=== PATIENT | female | born 1965 | race Caucasian/White ===

== ENCOUNTER 2017-05-20 23:30 | Emergency (ER) | payer OTHER ==
[~2017-05-20] VITALS: Ht 162.6 cm; Wt 106.6 kg
[~2017-05-20 23:30] MED LIST: ADDERALL 10 MG10 MG PO; BIOTIN1 MG PO; CALCIUM + VITA1 EACH PO; CLONAZEPAM2 MG PO; CYCLOBENZAPRINE10 MG PO; CYMBALTA60 MG PO; EFFEXOR XR150 MG PO; FERROUS SULFAT325 MG PO; GABAPENTIN100 MG; MAGNESIUM OXID400 MG PO; MULTI VITAMIN1 EACH PO; OMEPRAZOLE20 MG PO; ONDANSETRON ODT4 MG SL; REQUIP0.25 MG PO; TRAMADOL HCL50 MG PO; VITAMIN D5000 UNIT PO
--- OUTSIDE RECORDS SUMMARY | 2017-05-20 23:36 | XMS ---
Demographics + + + | Address | [address] | | | [place] [address] | + + + | Preferred Language | Unknown | + + + | Marital Status | Unknown | + + + | Mormonism Affiliation | Unknown | + + + | Race | Unknown | + + + | Ethnic Group | Unknown | + + + Author + + + | Author | [facility] | + + + | Organization | [facility] | + + + | Address | [address] | | | [place] [address] | + + + | Phone | | + + + Care Team Providers + + + + | Care Counter Waiter Name | Role | Phone | + + + + Unavailable | Unavailable | + + + + PROBLEMS + + + + + + + + | Type | Condition | ICD9-CM | [id number] | Onset | Condition | SNOMED | | | | Code | Code | Dates | Status | Code | + + + + + + + + | Problem | Acute | H65.119 | | | Active | [id number] | | | allergic | | | | | | | | serous | | | | | | | | otitis | | | | | | | | media | | | | | | + + + + + + + + | Problem | Otitis | | H66.90 | | Active | [id number] | | | media | | | | | | + + + + + + + + | Assessment | Otitis | H66.92 | | 09 Apr, | Active | [id number] | | | media, | | | 2016 | | | | | left | | | | | | + + + + + + + + | Problem | Headache | 784.0 | | | Active | [id number] | + + + + + + + + | Problem | JOINT | 719.41 | | | Active | [id number] | | | PAIN-SHLDE | | | | | | | | R | | | | | | + + + + + + + + ALLERGIES + + + + +--------+ | Substance | Reaction | Event Type | Date | Status | + + + + +--------+ | Wellbutrin | dizzy like | Drug Allergy | Nov, | Active | | | seizure | | | | + + + + +--------+ | Aspirin | anaphylaxis | Drug Allergy | Nov, | Active | + + + + +--------+ SOCIAL HISTORY No smoking Hx information available PLAN OF CARE VITAL SIGNS + + + + | Height | 64 in | 2016-11-19 | + + + + | Weight | 243.7 lbs | 2016-11-19 | + + + + | BMI | 41.83 kg/m2 | 2016-11-19 | + + + + | Temperature | 98.1 degrees Fahrenheit | 2016-11-19 | + + + + | Heart Rate | 76 /min | 2016-11-19 | + + + + | Blood pressure systolic | 134 mm Hg | 2016-11-19 | + + + + | Blood pressure diastolic | 89 mm Hg | 2016-11-19 | + + + + MEDICATIONS + + + + + + + +--------+ | Medicati | Instruct | Dosage | Frequenc | Start | End Date | Duration | Status | | on | ions | | y | Date | | | | + + + + + + + +--------+ | Augmenti | p.o. | one | 12h | Nov, | 16 Nov, | 7 days | Active | | n 875 mg | twice a | tablet | | 2016 | 2016 | | | | | day | | | | | | | + + + + + + + +--------+ | Fluconaz | | 1 tablet | | 09 Nov, | 19 Apr, | 10 | Active | | ole 150 | | | | 2016 | 2016 | day(s) | | | MG | | | | | | | | + + + + + + + +--------+ RESULTS No Results PROCEDURES + + + + + | Procedure | Date Ordered | Related Diagnosis | Body Site | + + + + + | Est Level III | November 19, 2016 | | | | Intermediate | | | | + + + + + | INJ KETOROLAC | November 19, 2016 | | | | TROMETHAMINE 15 MG | | | | + + + + + | INJECTION | November 19, 2016 | | | | INTRAMUSCULAR OR | | | | | SUBCUTANEOUS | | | | + + + + + IMMUNIZATIONS + + + + + | Vaccine | Route | Administration Date | Status | + + + + + | Ketorolac 60mg/2ml | IM Intramuscular | November 19, 2016 | Administered | + + + + +"
[2017-05-21] MEDS ORDERED: ZOFRAN ODT4 MG PO (01:54)
[2017-05-21] MEDS ORDERED: TRAMADOL HCL50 MG PO (01:54)
== END 2017-05-21 02:08 | disposition home or self-care (01) ==
LOC: ED 23:30
DX: K80.20 Calculus of gallbladder without cholecystitis without obstruction (principal); Z87.891 Personal history of nicotine dependence; Z88.6 Allergy status to analgesic agent; Z79.899 Other long term (current) drug therapy
CPT/HCPCS: 74177; 80053; 81001; 83690; 84703; 85025; 87088; 96361; 96374; 96375; 99284; J1170; J2405; J7030; Q9967

== ENCOUNTER 2017-06-21 02:23 | Emergency (ER) | payer OTHER ==
[~2017-06-21] VITALS: Ht 162.6 cm; Wt 106.1 kg
[~2017-06-21 02:23] MED LIST changes: +ZOFRAN ODT4 MG PO
== END 2017-06-21 03:45 | disposition home or self-care (01) ==
LOC: ED 02:23
DX: K21.9 Gastro-esophageal reflux disease without esophagitis (principal); F10.10 Alcohol abuse, uncomplicated; F15.90 Other stimulant use, unspecified, uncomplicated; F17.200 Nicotine dependence, unspecified, uncomplicated; Z88.8 Allergy status to other drugs, medicaments and biological substances; Z79.899 Other long term (current) drug therapy
CPT/HCPCS: 96374; 99282

== ENCOUNTER 2017-12-14 19:19 | Emergency (ER) | payer OTHER ==
[~2017-12-14] VITALS: Ht 162.6 cm; Wt 106.1 kg
[2017-12-14] MEDS ORDERED: NAPROXEN500 MG PO (20:30)
== END 2017-12-14 20:43 | disposition home or self-care (01) ==
LOC: ED 19:19
DX: S16.1XXA Strain of muscle, fascia and tendon at neck level, initial encounter (principal); S29.9XXA Unspecified injury of thorax, initial encounter; F17.200 Nicotine dependence, unspecified, uncomplicated; Z88.6 Allergy status to analgesic agent; Z88.8 Allergy status to other drugs, medicaments and biological substances; Z79.899 Other long term (current) drug therapy; V89.2XXA Person injured in unspecified motor-vehicle accident, traffic, initial encounter
CPT/HCPCS: 71046; 72040; 72170; 99283

== ENCOUNTER 2018-02-13 14:58 | Emergency (ER) | payer OTHER ==
[~2018-02-13] VITALS: Ht 162.6 cm; Wt 104.3 kg
[~2018-02-13 14:58] MED LIST changes: +NAPROXEN500 MG PO
[2018-02-13] MEDS ORDERED: ROBAXIN-750750 MG PO (16:16)
== END 2018-02-13 16:24 | disposition home or self-care (01) ==
LOC: ED 14:58
DX: M54.6 Pain in thoracic spine (principal); F17.200 Nicotine dependence, unspecified, uncomplicated; Z88.8 Allergy status to other drugs, medicaments and biological substances
CPT/HCPCS: 72070; 96372; 99283; J1885

== ENCOUNTER 2018-04-17 12:46 | Emergency (ER) | payer OTHER ==
[~2018-04-17] VITALS: Ht 162.6 cm; Wt 90.7 kg
[~2018-04-17 12:46] MED LIST changes: +ROBAXIN-750750 MG PO
[2018-04-17] MEDS ORDERED: IBU600 MG PO (13:20)
[2018-04-17] MEDS ORDERED: MAPAP500 MG PO (13:20)
[2018-04-17] MEDS ORDERED: ROBAXIN-750750 MG PO (13:20)
== END 2018-04-17 13:40 | disposition home or self-care (01) ==
LOC: ED 12:46
DX: M54.41 Lumbago with sciatica, right side (principal); F17.200 Nicotine dependence, unspecified, uncomplicated; Z88.8 Allergy status to other drugs, medicaments and biological substances; Z79.899 Other long term (current) drug therapy
CPT/HCPCS: 99283

== ENCOUNTER 2018-09-02 04:46 | Inpatient (IN) | payer OTHER ==
[~2018-09-02] VITALS: Ht 162.6 cm; Wt 105.1 kg
[~2018-09-02 04:46] MED LIST changes: +IBU600 MG PO; +MAPAP500 MG PO
--- NOTE | 2018-09-02 12:20 | EKG ---
[facility] [address] [facility] [place] [address] Signed Normal sinus rhythm Normal ECG No previous ECGs available Confirmed by SAMMIE SENA DO ([id number]) on 09/02/2018 12:20:44 PM Electronically Signed By: SAMMIE SENA DO 09/02/18 1220 PATIENT NAME: ALEXIS HERNANDEZ Electrocardiogram DATE OF : 67 PHYSICIAN: SAMMIE SENA DO REPORT #: [id number] REPORT IS CONFIDENTIAL AND NOT TO BE RELEASED WITHOUT AUTHORIZATION
--- NOTE | 2018-09-03 21:11 | OR ---
[facility] [address] [place], [place] [address] Signed DATE OF OPERATION: 09/03/2018 SURGEON: Bishnu Simons MD PREOPERATIVE DIAGNOSES: 1. Acute cholecystitis with gallstones and hydrops of gallbladder. 2. Morbid obesity. 3. Substance abuse history. POSTOPERATIVE DIAGNOSES: 1. Acute cholecystitis with gallstones and hydrops of gallbladder. 2. Morbid obesity. 3. Substance abuse history. PROCEDURES: 1. Laparoscopic cholecystectomy with intraoperative cholangiogram, prolonged, complicated, difficult. 2. Surgeon-directed fluoroscopy. ANESTHESIA: General endotracheal, [place], [employer] COMPLIANCE MANAGER and local 10 mL of 0.25% Marcaine with epinephrine. INDICATION: This morbidly obese 53-year-old white woman admitted through the emergency room yesterday with severe upper abdominal pain. She is quite morbidly obese. She does have persistent drug abuse including methamphetamine, only two days prior to current admission. A CT scan was performed on the basis of her generalized abdominal pain, showing a hydropic gallbladder with pericholecystic fluid and inflammation. She has been fluid resuscitated given intravenous antibiotics, parenteral pain medication and so forth and now is to undergo cholecystectomy preferred by a laparoscopic approach. The risks of bleeding, infection, bile duct injury, need for open procedure and other unforeseen complications are all reviewed with her. She understood and wished to proceed. FINDINGS: Indeed, the gallbladder was markedly hydropic, thickened, and inflamed. This did require decompression. Clear bile was noted indicative of gallbladder outlet obstruction. Intraoperative cholangiogram was performed, which was normal. The liver had mild fatty infiltration, but no advanced cirrhotic changes by any means. The Electronically Signed By: BISHNU SIMONS MD 09/03/18 2111 PATIENT NAME: ALEXIS HERNANDEZ OPERATIVE REPORT DATE OF : 67 REPORT #: [id number] PHYSICIAN: BISHNU SIMONS MD PCP: MERCEDES HOLLINGSWORTH REPORT IS CONFIDENTIAL AND NOT TO BE RELEASED WITHOUT AUTHORIZATION [facility] [address] [place], [place] [address] Signed gallbladder was excised laparoscopically, though it was a prolonged, complicated, and difficult operation on the basis of the edema, her body obesity, the distended nature of the gallbladder, and so on. DESCRIPTION OF PROCEDURE: The patient was brought to the operating room, given a general endotracheal anesthetic. Preoperative antibiotic Ancef had been given. Sequential compression device stockings used and heparin subcutaneously administered. The obese abdomen was prepared with chlorhexidine solution and draped sterilely. Multiple tattoos were noted over the abdominal cavity. Avoidance of the tattoos was undertaken as best could be. An infraumbilical incision was made and using an open William cannula technique, the abdomen was entered and pneumoperitoneum achieved to a level of 14 mmHg with carbon dioxide gas. Intra-abdominal inspection showed no sign of ascites or carcinomatosis. The gallbladder was obscured from view. Three additional trocars were placed in usual configuration in the subxiphoid, right midclavicular, and right anterior axillary line. Dense adhesions of omentum to the surface of the gallbladder were noted. These were taken down with blunt and electrocautery dissection. The gallbladder once revealed was markedly dilated and hydropic and markedly inflamed and thickened. It could not be grasped. Using a decompressive trocar, the apex was punctured and drainage of "white bile" was undertaken. The puncture site was grasped and gallbladder elevated cephalad. The infundibulum was grasped and retracted laterally and using blunt and electrocautery dissection, the triangle of Calot was dissected free. Due to the edema and so forth, the planes were able to be developed safely. There appeared to be a cyst in the medial aspect of the gallbladder in the medial segment of the left lobe of the liver. It did not represent hemangioma. With meticulous care, the cystic duct was ultimately dissected free. It was isolated and a clip applied across the gallbladder cystic duct junction. Transverse choledochotomy was made in the cystic duct, but it was thick and fibrotic. On that basis, another choledochotomy was made down the ducts of short distance revealing a lumen that was patent showing clear bile. Using the Tanner type cholangiocatheter, intraoperative cholangiography was undertaken showing free flow of contrast in biliary tree with prompt emptying into the duodenum. There was no sign of filling defect, biliary anomaly, or other problem. The cystic duct was triply clipped and divided. The gallbladder was dissected free in a retrograde fashion. In the medial aspect of the gallbladder was a cyst, not a hemangioma as had been postulated by CT scan. Entry into the gallbladder did occur as the posterior wall was gangrenous and necrotic. A single large stone came out of it. It was left in place to be extracted with the gallbladder itself. Further dissection was undertaken, ultimately excising the gallbladder from the liver bed. Endobag was used to place the gallbladder and the stray stone into it, and extracted through the infraumbilical port site. The gallbladder was opened on the back table by the circulating nurse and I examined it, and she had marked inflammatory Electronically Signed By: BISHNU SIMONS MD 09/03/182110 PATIENT NAME: ALEXIS HERNANDEZ OPERATIVE REPORT DATE OF : 67 REPORT #: [id number] PHYSICIAN: BISHNU SIMONS MD PCP: MERCEDES HOLLINGSWORTH REPORT IS CONFIDENTIAL AND NOT TO BE RELEASED WITHOUT AUTHORIZATION [facility] [address] [place], [place] [address] Signed changes of mucosa in least two large gallstones. Irrigation was undertaken in subhepatic space. A 7 mm flat Rito drain was placed through a right-sided trocar site. Not mentioned previously was egress of pus upon small perforation of the gallbladder. This had been suctioned free and maintained and not generally distributed anywhere. Once excess irrigation fluid was suctioned free and the Rito drain manipulated to the subhepatic space, it was secured with the skin with nylon suture. Excess irrigation fluid was suctioned free and removed and trocars removed under direct visualization showing no sign of bleeding. The infraumbilical fascial incision was reapproximated with interrupted 0 Vicryl suture. All wounds were copiously irrigated with saline solution. A 10 mL of 0.25% Marcaine with epinephrine was injected locally. The skin was then closed with interrupted 3-0 Vicryl. Steri-Strips were applied. The patient was ultimately extubated and transferred to recovery in good condition. The operation was prolonged, complicated, and difficult lasting three times longer than normal. This is in large part related to hydropic nature of the gallbladder, its advanced inflammation, and her morbid obesity. MD TALYA Lechuga/ZACKL /[id number] cc: AJ Doshi [facility] Tom Guadarrama MD Copies: ALEXANDRA GUADARRAMA MD ~ Electronically Signed By: BISHNU SIMONS MD 09/03/182110 PATIENT NAME: ALEXIS HERNANDEZ OPERATIVE REPORT DATE OF : 67 REPORT #: [id number] PHYSICIAN: BISHNU SIMONS MD PCP: MERCEDES HOLLINGSWORTH REPORT IS CONFIDENTIAL AND NOT TO BE RELEASED WITHOUT AUTHORIZATION
--- NOTE | 2018-09-04 12:09 | HP ---
[facility] [address] [place], [place] [address] Signed ADMISSION DATE: 09/02/2018 REASON FOR ADMISSION: Hydropic gallbladder with gallstones, abdominal pain. HISTORY OF PRESENT ILLNESS: This obese 39.8 kg/m2 woman is accompanied by her . She presented to the emergency room at approximately 5 in the morning and evaluated initially by Dr. Guadarrama, with generalized abdominal pain and a diagnosis underlying of "fibromyalgia." Additionally, she is known to have significant drug use including methamphetamine use in the past few days. The patient complained of severe pain of her lower back, also on the left around the neck and poorly localized pain generally. She was transferred to the hospital by EMS services and evaluated by Dr. Guadarrama, on whose evaluation was transferred ultimately to . The tox screen was significant for amphetamine and methamphetamine use, no other illicit substances noted. The patient and her , who accompanied her, do admit to episodic drug abuse problems over many years, sometimes "getting clean" together, sometimes doing drugs together. In the course of her evaluation for abdominal pain, she underwent a CT of the abdominal cavity and pelvis. She was noted to have a hydropic, distended gallbladder with gallstones and mild pericholecystic fat strand suggestive of cholecystitis. There is no evidence of nephrolithiasis. A possible hemangioma or cyst was noted of the right hepatic lobe, diverticular changes of the colon were noted, and a simple left renal cyst also noted previously and present at this time. The patient notes that her pain is not unlike kidney stones that she has had in the past. A urinalysis was essentially normal. Chem profile showed normal chemistries including liver enzymes and lipase was 9, beta-hCG was negative. The patient is admitted for further evaluation and care for probable hydropic gallbladder with gallstones. PAST MEDICAL HISTORY: As described including drug abuse. The patient has seven children, youngest 21 years of age. MEDICATIONS: At the time of admission include methocarbamol 750 mg tablet 1-2 q.8 hours as needed for muscle spasm and ibuprofen 600 mg daily t.i.d. as needed for pain. Electronically Signed By: BISHNU SIMONS MD 09/04/18 1209 PATIENT NAME: ALEXIS HERNANDEZ HISTORY AND PHYSICAL DATE OF : 67 REPORT #: [id number] PHYSICIAN: BISHNU SIMONS MD PCP: MERCEDES HOLLINGSWORTH REPORT IS CONFIDENTIAL AND NOT TO BE RELEASED WITHOUT AUTHORIZATION [facility] [address] [place] [address] Signed ALLERGIES: She is considered to have aspirin allergy and bupropion allergy from [facility]. SOCIAL HISTORY: She is and not working. REVIEW OF SYSTEMS: Denies any shortness of breath or chest pain per se. Does have abdominal pain, some of it on the left, some of it on the right side. She denies any hematuria or dysuria. Denies any hematemesis or blood per rectum. PHYSICAL EXAMINATION: GENERAL: Somewhat dark-skinned woman, lying on her left side with her closely attached to her in the bed. After becoming independent in her bed, examination shows her to be with a fair amount of discomfort and somewhat fidgety and definitely not lying still. HEENT: Mucous membranes are slightly dry. Trachea is midline. CHEST: Clear. HEART: Regular without murmur. ABDOMEN: Markedly obese. There are tattoos in the area. She does not have left lower abdominal pain. Does have an obese abdominal wall. There is tenderness in the right subcostal area, but no mass. EXTREMITIES: Show no clubbing, cyanosis, or edema. ASSESSMENT AND PLAN: I have reviewed her CT scan in detail. The gallbladder does appear dilated stones. Most likely, she does have acute calculous cholecystitis. Antibiotics have been initiated and will be continued. Still needs additional fluids and on that basis fluid boli will be initiated. She wants to have something by mouth and we will allow liquids, but nothing to eat after midnight. We will anticipate laparoscopic cholecystectomy in the morning if all is reasonably well regarding resuscitation. The risk of bleeding, infection, bile duct injury, need for open procedure, and other unforeseen complications were all reviewed in detail with the patient and her . A gallbladder booklet will be provided as well. Bishnu Simons MD Electronically Signed By: BISHNU SIMONS MD 09/04/18 1209 PATIENT NAME: ALEXIS HERNANDEZ HISTORY AND PHYSICAL DATE OF : 67 REPORT #: [id number] PHYSICIAN: BISHNU SIMONS MD PCP: MERCEDES HOLLINGSWORTH REPORT IS CONFIDENTIAL AND NOT TO BE RELEASED WITHOUT AUTHORIZATION [facility] [address] [place] [id number] Signed /[facility] /[id number] cc: Alexandra Guadarrama MD Copies: ALEXANDRA GUADARRAMA MD ~ Electronically Signed By: BISHNU SIMONS MD 09/04/18 1209 PATIENT NAME: ALEXIS HERNANDEZ HISTORY AND PHYSICAL DATE OF : 67 REPORT #: [id number] PHYSICIAN: BISHNU SIMONS MD PCP: MERCEDES HOLLINGSWORTH REPORT IS CONFIDENTIAL AND NOT TO BE RELEASED WITHOUT AUTHORIZATION
[2018-09-04] MEDS ORDERED: MAPAP500 MG PO (13:24)
[2018-09-04] MEDS ORDERED: MAPAP325 MG PO (13:25)
[2018-09-04] MEDS ORDERED: OXYCODON-ACETA1 EAC2 PO (13:25)
--- NOTE | 2018-09-04 18:15 | DS ---
[facility] [address] [place], [place] [address] Signed ADMISSION DATE: 09/02/2018 DISCHARGE DATE: 09/04/2018 REASON FOR ADMISSION: Hydropic gallbladder with gallstones, acute cholecystitis, and morbid obesity. HISTORY: This morbidly obese 39.8 kg/m2 woman presents to the emergency room and evaluated by Dr. Landon with findings of upper abdominal pain. A CT scan was obtained showing hydropic gallbladder with gallstones and pericholecystic inflammation. She was admitted for further evaluation and care. PERTINENT PHYSICAL EXAMINATION: GENERAL: Showed a somewhat dark skin woman who had dry mucous membranes. HEART: Regular without murmur. ABDOMEN: Markedly obese. There are multiple tattoos on the abdominal wall. There is tenderness in the right upper abdominal area. Other details can be found in history and physical. HOSPITAL COURSE: She was fluid resuscitated given intravenous antibiotics, parenteral pain medications and so on. On September 03, 2018, she underwent laparoscopic cholecystectomy, which was prolonged, complicated, and difficult on the basis of her obesity and very markedly dilated hydropic gallbladder. Cholangiogram was normal. She had clear bile noted, which was drained prior to cholecystectomy indicative of complete gallbladder obstruction. A drain was placed at operation. Postoperatively, she recovered quite markedly. By day of discharge, she is ambulating well, tolerating regular diet, has much improvement of her generalized abdominal pain. It is noted that she has an underlying drug abuse problem including methamphetamine use and others on an episodic basis. She was advised to avoid those illicit drugs. DISCHARGE MEDICATIONS: 1. Tylenol 650 mg p.o. q.6 hours p.r.n. pain #90, refill one. 2. Oxycodone/acetaminophen 7.5/325 p.o. q.6 hours p.r.n. pain, dispense #5. FOLLOWUP PLAN: She will return to see me in approximately 4 weeks. She is to walk daily. Keep Electronically Signed By: BISHNU SIMONS MD 09/04/18 1815 PATIENT NAME: ALEXIS HERNANDEZ DISCHARGE SUMMARY DATE OF : 67 REPORT #: [id number] PHYSICIAN: BISHNU SIMONS MD PCP: MERCEDES HOLLINGSWORTH REPORT IS CONFIDENTIAL AND NOT TO BE RELEASED WITHOUT AUTHORIZATION [facility] [address] [place] [address] Signed Steri-Strips on. She is permitted to shower. She should lift no more than 20 pounds for the next 2 weeks. DISCHARGE DIAGNOSES: 1. Acute cholecystitis (hydropic gallbladder). 2. Status post laparoscopic cholecystectomy with cholangiogram prolonged, complicated, difficult. MD TALYA Lechuga/ZACKL /[id number] Copies: ~ Electronically Signed By: BISHNU SIMONS MD 09/04/18 1815 PATIENT NAME: ALEXIS HERNANDEZ DISCHARGE SUMMARY DATE OF : 67 REPORT #: [id number] PHYSICIAN: BISHNU SIMONS MD PCP: MERCEDES HOLLINGSWORTH REPORT IS CONFIDENTIAL AND NOT TO BE RELEASED WITHOUT AUTHORIZATION
== END 2018-09-04 15:13 | disposition home or self-care (01) | DRG 418 ==
LOC: ED 04:46 → MS 04:47
PROVIDERS: ADMIT Surgery
PROC: BF13YZZ Fluoroscopy of Gallbladder and Bile Ducts using Other Contrast (ICD-10-PCS; 2018-09-03)
PROC: 0FT44ZZ Resection of Gallbladder, Percutaneous Endoscopic Approach (ICD-10-PCS; principal; 2018-09-03 06:45)
DX: K80.00 Calculus of gallbladder with acute cholecystitis without obstruction (principal); K82.1 Hydrops of gallbladder; E66.01 Morbid (severe) obesity due to excess calories; Z68.39 Body mass index [BMI] 39.0-39.9, adult; F19.10 Other psychoactive substance abuse, uncomplicated; M79.7 Fibromyalgia
CPT/HCPCS: 00790; 51701; 74176; 74300; 76705; 80053; 81001; 83690; 84703; 85025; 88304; 93005; 93010; 94762; 96365; 96375; 96376; 99285-25; C9113; G0008; G0378; J0131; J0690; J1100; J1644; J1885; J2250; J2270; J2405; J2543; J2704; J2765; J3010; J7060; J7120; Q9967

== ENCOUNTER 2018-09-12 12:21 | Emergency (ER) | payer OTHER ==
[~2018-09-12] VITALS: Ht 162.6 cm; Wt 105.1 kg
[~2018-09-12 12:21] MED LIST changes: +MAPAP325 MG PO; +OXYCODON-ACETA1 EAC2 PO
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
[2018-09-12] MEDS ORDERED: ONDANSETRON ODT8 MG PO (16:37)
[2018-09-12] MEDS ORDERED: NORCO 5-325 TA1 EACH PO (16:37)
== END 2018-09-12 16:49 | disposition home or self-care (01) ==
LOC: ED 12:21
DX: N84.0 Polyp of corpus uteri (principal); D64.9 Anemia, unspecified; Z87.891 Personal history of nicotine dependence; Z90.49 Acquired absence of other specified parts of digestive tract; Z88.6 Allergy status to analgesic agent; Z88.8 Allergy status to other drugs, medicaments and biological substances
CPT/HCPCS: 74177; 80053; 81001; 83690; 85025; 87088; 96361; 96374; 96375; 99284-25; J1170; J2405; J7030; Q9967

== ENCOUNTER 2024-05-16 08:58 | Day surgery (SDC) | payer OTHER ==
--- NOTE | 2024-05-14 17:04 | NUR ---
PHONE CALL TO PT AT THE FOLLOWING NUMBER [phone]. IS OUT OF SERVICE. WILL CALL DR OFFICE TO SEE IF THEY HAVE DIFFERENT NUMBER. OFFICE IS CURRENTLY CLOSED.
--- NOTE | 2024-05-14 17:48 | EKG ---
[facility] [address] [facility] [place] [address] Signed Normal sinus rhythm with sinus arrhythmia Normal ECG When compared with ECG of 02-SEP-2018 04:53, No significant change was found Confirmed by Jere Edwards MD ([id number]) on 05/14/2024 5:47:54 PM Electronically Signed By: JERE EDWARDS DO 05/14/24 1748 PATIENT NAME: MARYALEXIS KALLIE Electrocardiogram DATE OF : 67 PHYSICIAN: JERE EDWARDS DO REPORT #: [id number] REPORT IS CONFIDENTIAL AND NOT TO BE RELEASED WITHOUT AUTHORIZATION
--- NOTE | 2024-05-15 10:10 | NUR ---
CALL TO DR RODRÍGUEZ OFFICE DUE TO PHONE NUMBER IS NOT WORKING. THE OFFICE IS ALSO TRYING TO REACH THIS PATIENT. [facility] AND [facility] MAYBE ABLE TO HELP FIND PATIENT AND HAVE A CURRENT NUMBER. OFFICE WILL LET MACHINE CAGE MAKER KNOW OF THE NEW NUMBER AND ANY OTHER CHANGES.
--- NOTE | 2024-05-15 15:57 | NUR ---
TRY TO CVALL PT HUSBANDS NUMBER UNABLE TO RECEIVE CALLS AND THEN HER MOTHER IN LAWS NUMBER AND IT IS NOT HER PHONE NUMBER ANYMORE. WILL REACH OUT TO PATRICK. TALKED WITH REFERRALS.
--- NOTE | 2024-05-15 16:09 | NUR ---
PATRICK PROVIDED TWO NUMBERS [phone] IT IS NOT A GOOD NUMBER FOR HER AND [phone] IS BUSY AND UNABLE TO GET THROUGHT TO ANYONE. THE NUMBERS THAT OUR IN THE HOSPITAL SYSTEM IS [phone] IS NOT A WORKING NUMBER. [phone] IS NOT A WORKING NUMBER AND [phone] IS NOT HER MOTHER IN LAW NUMBER. CALLED DR MIRELES OFF AND TALKED WITH MARLENI AND EXPALINED WHAT I HAVE DONE TO TRY TO REACH THIS PERSON. SHE WILL TALK WITH DR RODRÍGUEZ ABOUT PT.
[~2024-05-16] VITALS: Ht 162.6 cm; Wt 91.8 kg
[~2024-05-16 08:58] MED LIST changes: +CEFAZOLIN SODIUM 2 GM/20 ML SYR IV SCH; +IBLOOD GLUCOSE TEST STRIP 1 EA TEST VI PRN; +LACTATED RINGER'S 1,000 ML IV SCH; +LIDOCAINE HCL 1% 5 ML SDV INJ ONE; +NORCO 5-325 TA1 EACH PO; +ONDANSETRON ODT8 MG PO; +PERCOCET 5-3251 EACH PO; +SEVOFLURANE 250 ML BTL INH ONE
[2024-05-16 09:21] VITALS: BP 165/87
[2024-05-16 09:32] VITALS: BP 165/85
[2024-05-16] MEDS ORDERED: TRAMADOL HCL50 MG PO ×2 (09:39→11:55)
[2024-05-16] MEDS ORDERED: propofoL 200 MG/20 ML VIAL ONE (09:41)
[2024-05-16] MEDS ORDERED: SODIUM CHLORIDE 0.9% 20 ML IV ONE (09:41)
[2024-05-16] MEDS ORDERED: LIDOCAINE HCL 2% 5 ML SDV ONE (09:41)
[2024-05-16] MEDS ORDERED: DEXAMETHASONE SOD PHOS 4 MG/ML VIAL ONE (09:41)
[2024-05-16] MEDS ORDERED: KETOROLAC TROMETHAMINE 30 MG/ML VIAL ONE (09:41)
[2024-05-16] MEDS ORDERED: ondansetron HCL 4 MG/2 ML VIAL ONE (09:41)
[2024-05-16] MEDS ORDERED: dexmedeTOMIDine HCl 200 MCG/2 ML VIAL ONE (09:41)
[2024-05-16] MEDS ORDERED: Ropivacaine HCl 0.5% 30 ML VIAL ONE (09:41)
[2024-05-16] MEDS ORDERED: MIDAZOLAM HCL 2 MG/2 ML VIAL ONE (09:47)
[2024-05-16 10:31] LABS: AMPHETAMINES, URINE POSITIVE (NEGATIVE); BARBITURATES, URINE NEGATIVE (NEGATIVE); BENZODIAZEPINE, URINE NEGATIVE (NEGATIVE); BUPRENORPHINE, URINE NEGATIVE (NEGATIVE); CANNABINOID, URINE NEGATIVE (NEGATIVE); COCAINE, URINE NEGATIVE (NEGATIVE); ECSTASY, URINE NEGATIVE (NEGATIVE); FENTANYL, URINE NEGATIVE (NEGATIVE); METHADONE, URINE NEGATIVE (NEGATIVE); OPIATES, URINE NEGATIVE (NEGATIVE); OXYCODONE, URINE NEGATIVE (NEGATIVE); PHENCYCLIDINE, URINE NEGATIVE (NEGATIVE)
[2024-05-16] MEDS ORDERED: NALOXONE HCL 0.4 MG SYR IV PRN (10:45)
[2024-05-16] MEDS ORDERED: ondansetron HCL 4 MG/2 ML VIAL IV PRN (10:45)
[2024-05-16] MEDS ORDERED: MIDAZOLAM HCL 2 MG/2 ML VIAL IV PRN (10:45)
[2024-05-16] MEDS ORDERED: fentaNYL citrate 50 MCG/ML SDV IV PRN (10:45)
[2024-05-16] MEDS ORDERED: TRAMADOL HCL 50 MG TAB PO PRN (10:45)
[2024-05-16] MEDS ORDERED: IBLOOD GLUCOSE TEST STRIP 1 EA TEST VI PRN (10:45)
[2024-05-16] MEDS ORDERED: LACTATED RINGER'S 1,000 ML IV ONE (11:03)
[2024-05-16] MEDS ORDERED: fentaNYL citrate 100 MCG/2 ML VIAL ONE (11:04)
--- NOTE | 2024-05-16 12:10 | NUR ---
05/16/24 1210 TON BLACKBURN 1153 PT ARRIVED TO PACU VIA STREACHER. PT HAS ORAL AIRWAY IN PLACE AND 6L OF OXYGEN VIA FACE MASK. PT BREATHING EQUAL AND UNLABORED. REPORT TAKEN FROM BEATRIS LERNER. ALL MONITORS ATTACHED. SPOKE TO HAIRSPRING I INSPECTOR ABOUT BLOOD PRESSURES, NO NEW ORDERS AT THIS TIME. 1158 WITH TACTILE STIMULI, PT ABLE TO OPEN MOUTH TO REMOVE AIRWAY. BRETHING EQUAL AND UNLABORED. 6L OF O2 VIA FACE MASK. 1200 HAIRSPRING I INSPECTOR WOKE PT WITH TACTILE STIMULI, PT SHOOK HEAD 'NO' WHEN ASKED ABOUT IF PT IS IN PAIN.
[2024-05-16 12:30] VITALS: BP 170/98
--- NOTE | 2024-05-16 12:40 | NUR ---
1230-PT ARRIVED TO DROWSY, DOZING ON AND OFF. PT IS EASILY AROUSED WITH LIGHT TOUCH OR VERBAL STIMULI. PT ANSWERS QUESTIONS APPROPRIATELY. VSS. PT WITH SATS 95% OR GREATER ON RA. REPORT RECEIVED FROM PRODUCE SHIPPER. VISUALIZED SURGICAL DRSG WITH PRODUCE SHIPPER. DRSG/SPLINT IS CDI. LUE ELEVATED ON PILLOWS WITH ICE PACK IN PLACE. CMS INTACT. PT ABLE TO WIGGLE FINGERS SOME BUT IS UNABLE TO LIFT ARM OF PILLOW. SLING OBTAINED FOR PLACEMENT WHEN MORE AWAKE TO KEEP ARM IMMOBILIZED AND ELEVATED. PT REPORTS SOME NUMBNESS AND TINGLING IN LUE IN HAND AND FINGERS. PT DENIES PAIN OR NAUSEA WHEN ASKED. WHEN PT IS NOT BEING ENGAGED IN CONVERSATION, PT QUICKLY FALLS BACK ASLEEP. BILAT SIDERAILS IN PLACE. CALL LIGHT WITHIN PT REACH ON R SIDE. BED IN LOW POSITION WITH WHEELS LOCKED. ALL QUESTIONS ANSWERED. IV SITE ASSESSED, PATENT, AND INFUSING LR PER ORDERS.
[2024-05-16 13:32] VITALS: BP 146/81
--- NOTE | 2024-05-16 13:40 | NUR ---
1315-VERBAL STIMULI USED TO WAKE PT. PT ANSWERS QUESTIONS APPROPRIATELY BUT HAS DIFFICULTY KEEPING EYES OPEN AND EASILY DOSES BACK TO SLEEP. PT OFFERED ICE WATER AND SNACK. PROVIDED PT WITH CHOCOLATE PUDDING, MIGUEL CRACKERS, AND ICE WATER. PT TAKING SIPS OF ICE WATER AND EATING. HOB WAS ELEVATED TO APPROX 45-60 DEGREES TO AID IN EATING AND PROMOTE WAKEFULLNESS. SPOKE WITH PT REGARDING UNCONTROLLED HTN AND RISK OF STROKE, PT HAS HX OF STROKE. PT EDUCATED ON RISKS FOR HTN AND STROKE AND ENCOURAGED TO SEE PCP AT [facility] REGARDING TX FOR HTN. PT VERBALIZED UNDERSTANDING AND ASKED FOR ASSISTANCE SETTING UP AN APPOINTMENT. WILL ATTEMPT TO CALL [facility] AND SCHEDULE APPOINTMENT FOR PT AT HER REQUEST. PT REQUESTING ANOTHER WARM BLANKET. OBTAINED AND PLACED ON PT. 1325-PTS SPOUSE ARRIVED AND WAS SHOWN TO HER ROOM. SPOUSE STAYED APPROX 2-3 MINS AND THEN LEFT. PT REPORTS HE SAID HE WOULD COME BACK LATER. 1330-INTO PTS ROOM FOR ROUTINE REASESSMENT. VS TAKEN. BP IMPROVED. IV SITE ASSESSED. SURIGCAL DRESSING VISUALIZED AND NO ACUTE CHANGES NOTED FROM PREVIOUS ASSESSMENT. PT CONT TO REPORT SOME NUMBNESS AND TINGLING FEELINGS IN L HAND/FINGERS. UNABLE TO LIFT LUE OFF PILLOWS ON BED. LUE REMAINS ELEVATED ON PILLOWS AT HEART LEVEL. ICE PACK IN PLACE. PT DENIES PAIN OR NAUSEA WHEN ASKED. EDUCATION PROVIDED ON L AXILLARY PNB RECEIVED. PTS MOTHER IN [place] ARRIVED TO ROOM AND IS SITTING AT PTS BEDSIDE CAHTTING WITH PT. CALL LIGHT WITHIN PT REACH. SIDERAILS REMAINS IN PLACE WITH BED INLOW POSITION WITH WHEELS LOCKED FOR SAFETY. PT DENIES URGE TO VOID WHEN ASKED AT THIS TIME. \ 1340-PT REQUESTING ADDITIONAL PUDDING AND SEEN CONVERSING WITH MOTHER IN LAW AT BEDSIDE. PT APPEARS MORE AWAKE WHEN ENGAGED IN CONVERSATION OR EATING. 1350-MOTHER IN LAW LEFT ROOM AND PT NOTED TO EASILY DOZE BACK TO SLEEP. AROUSES TO VERBAL STIMULI. CALL LIGHT WITHIN REACH, BILAT SIDE RAILS IN PLACE. BED IN LOW POSITION WITH WHEELS LOCKED. ALL QUESTIONS ANSWERED. PT RETING QUIETLY WITH EYES CLOSED. RR EVEN AND UNALBORED. 1230
[2024-05-16 14:30] VITALS: BP 168/93
--- NOTE | 2024-05-16 14:56 | NUR ---
1430-INTO PTS ROOM FOR ROUTINE REASSESSMENT. VS TAKEN. IV SITE ASSESSED. PT DENIES NAUSEA WHEN ASKED AND IS TAKING PO FOOD AND FLUIDS W/O ISSUES. IV SL'D AT THIS TIME. SURIGCAL DRSG ASSESSED, NO ACUTE CAHNGES FROM PREVIOUS ASSESSMENT. PT DENIES PAIN WHEN ASKED. WIGGLES FINGERS. FINGERS PINK, WARM, DRY, AND WITH CAP REFILL OF LESS THAN 3 SEC. PT COMPLIANT WITH ELEVATION AND ICE IN PLACE TO SURGICAL SITE. PT REPORTS STILL UNABLE TO LIFT L WRIST AND STILL HAS SOME NUMBNESS AND TINGLING IN FINGERS. PT AGREEABLE TO GET UP TO SIDE OF BED TO PLACE SLING AND THEN WALK TO RESTROOM AND ATTEMPT VOIDING. 2ND RN OBTAINED FOR SAFETY.
--- NOTE | 2024-05-16 15:25 | NUR ---
1500-PT ASSISTED WITH SITTING UP ON EOB WITH 2 RN ASSIST. SLING PLACED TO LUE. PT ASSISTED TO STANDING POSITION. PT REPORTS SOME DIZZINESS. PT INSTRUCTED TO RESIDENT INTERN PLACE FOR A COUPLE MINS BEFORE ATTEMPTING TO WALK. PT COMPLIANT AND DIZZINESS IMPROVED. PT AMBULATED TO RESTROOM WITH 1RN LIMITED ASSIST FOR STABILITY WITH GAIT AND SAFETY. 1510-PT ABLE TO VOID 1000ML OF YELLOW URINE. PT ASSISTED BACK TO ROOM WITH 1 RN LIMITED ASSIST. PT SITTING ON EOB. ASSISTED PT IN REMOVING SLING TO DRESS AND PLACED SLING BACK ON AFTER. SLING FITTED TO PT. ICE PACK REFILLED. DISCHARGE TEACHING GONE OVER WITH PT. PT GIVEN DR. RODRÍGUEZ AFTER HOURS PHONE NUMBER AND HER F/U APPT WITH HIS OFFICE ON 05/22/24 AT 1518. AND HER APPT WITH PCP AT [facility] ON 05/28/24 AT 1130 REGARDING UNCONTROLLED BP'S. PT ALSO PROVIDED EDUCATIONAL HANDOUT ON HYPERTENSION. PT VERBALIZED UNDERSTANDING. ALL QUESTIONS ANSWERED. CALL LIGHT WITHIN PT REACH. BED IN LOW POSITION WITH WHEELS LOCKED.
[2024-05-16 15:30] VITALS: BP 152/92
--- NOTE | 2024-05-16 15:55 | NUR ---
1530-INTO PTS ROOM FOR ROUTINE REASSESSMENT. VS TAKEN. IV SITE ASSESSED. SURGICAL DRSG VISUALIZED, NO ACUTE CHANGES NOTED FROM INITITAL ASSESSMENT. CMS INTACT. SLING IN PLACE. ICE TO SURGICAL SITE. PT DENIES PAIN OR [place] WHEN ASKED. PT REPORTS SOME DULL FEELING IN HER L HAND FINGERS BUT IS ABLE TO WIGGLE THEM WHEN INSTRUCTED TO DO SO. CALL LIGHT WITHIN PT REACH WELL PERSONAL BELONGINGS. ALL QUESTIONS ANSWERED. BED IN LOW POSITION WITH WHEELS LOCKED. PT HAS MET CRITERIA FOR DC. SEVERAL CALLS MADE TO PTS [id number] PHONE NUMBER PROVIDED FOR [employer] [facility]. UNABLE TO LEAVE [employer] D/T MAILBOX FULL. SPOKE WITH PT REGARDING THIS AND SHE PROVIDED HER SPOUSE HENRRY PHONE NUMBER TO TRY. 1532-CALL MADE TO PTS SPOUSE FOR [employer]. NO ANSWER MESSAGE LEFT. PT UPDATED. 1545-PTS SPOUSE CALLED BACK AND REPORTS HE CAN BE HERE TO PICK PT UP IN 15-20 MINS. DIRECTED HIM TO PULL UP IN FRONT OF HOSPITAL AND THAT THIS RN WOULD BRING PT OUT IN WC. PT UPDATED. 1555-IV REMOVED FROM R HAND. TIP OBSERVED TO BE INTACT. PRESSURE DRSG APPLIED USING GAUZE AND COBAN.
--- NOTE | 2024-05-16 16:00 | NUR ---
PT DISCHARGED FROM DS VIA WC TO PASSENGER SIDE OF SPOUSES VEHICLE. ALL PERSONAL BELONGINGS TAKEN WITH PT.
--- NOTE | 2024-05-20 07:04 | OR ---
[facility] [address] [place], [place] [address] Signed DATE OF OPERATION: 05/16/2024 SURGEON: Doris Hawthorne MD PREOPERATIVE DIAGNOSIS: Displaced left distal radius fracture. POSTOPERATIVE DIAGNOSIS: Displaced left distal radius fracture. PROCEDURE PERFORMED: Open reduction and internal fixation of left distal radius. SUPERVISOR STENO POOL: None. ANESTHESIA: General. BLOOD LOSS: None. TOURNIQUET TIME: 37 minutes. IMPLANTS: Haider small distal radius plate. BRIEF HISTORY: Armin is a 58-year-old female, who suffered a ground level fall. The fracture was displaced and the ER refused to reduce it. She presented to our office, was scheduled for surgery. Risks, benefits, and alternatives were discussed with her and she understood and wished to proceed. PROCEDURE IN DETAIL: Once consent was obtained, she was taken to the operating room. After adequate anesthesia she was placed on operating room table. All downside pressure points were well padded. Left arm was placed in well-padded proximal arm tourniquet. She had moderate to significant swelling in the volar forearm. There was ecchymoses throughout. The distal radius was approached through a standard distal volar Will approach, Electronically Signed By: DORIS HAWTHORNE MD 05/20/24 0704 PATIENT NAME: ARMIN HERNANDEZ OPERATIVE REPORT DATE OF : 67 REPORT #: [id number] PHYSICIAN: DORIS HAWTHORNE MD PCP: LEONARD COFFMAN MD REPORT IS CONFIDENTIAL AND NOT TO BE RELEASED WITHOUT AUTHORIZATION [facility] [address] [place], [place] [address] Signed carried through the skin and subcutaneous tissue. Dissection along the FCR was then undertaken through the floor of the FCR sheath. The muscle underlying this was quite swollen and was mobilized with some difficulty. Pronator was then incised longitudinally and elevated off the fracture. The fracture was readily identifiable. Using a Barton elevator the fracture was distracted, cleared and reduced in a shoe horn technique. Once it was adequately positioned, it was then held in position and 1.6 mm K-wire was advanced from the radial styloid engaging the body of the radius proximally. Image intensifier was brought in. The fracture was found to be well reduced. The three hole small head volar distal radius plate was then positioned on the distal end of the radius. It was held in position with a screw in the central slot. The alignment of the plate was then finalized under image intensifier guidance and a single distal ulnar screw was placed in the plate around the distal radius down to the plate. Three more screws were placed in the distal radius, one nonlocking, two locking. Two nonlocking screw was then placed proximally. Final result showed good reduction, good plate placement and screw lengths. The wound was copiously irrigated with antibiotic solution. The pronator was closed with 2-0 Monocryl. The floor of the FCR sheath with 2-0 Monocryl and the subcutaneous tissue with 3-0 Monocryl. The skin was closed with 3-0 Stratafix and Steri-Strips. Wound was dressed with Allevyn dressing, sterile cast padding, and radial gutter splint. She tolerated the procedure well. All sponge, needle, and instrument counts were correct. Doris Hawthorne MD BA/MODL /[id number] Copies: ~ Electronically Signed By: DORIS HAWTHORNE MD 05/20/24 0704 PATIENT NAME: ARMIN HERNANDEZ OPERATIVE REPORT DATE OF : 67 REPORT #: [id number] PHYSICIAN: DORIS HAWTHORNE MD PCP: LEONARD COFFMAN MD REPORT IS CONFIDENTIAL AND NOT TO BE RELEASED WITHOUT AUTHORIZATION
== END 2024-05-16 16:00 | disposition home or self-care (01) ==
LOC: DS 08:58
PROVIDERS: Nurse Anesthetist, Certified Registered; ATTEND Specialist
PROC: 0PSJ04Z Reposition Left Radius with Internal Fixation Device, Open Approach (ICD-10-PCS; principal; 2024-05-16 12:15)
DX: S52.572A Other intraarticular fracture of lower end of left radius, initial encounter for closed fracture (principal); E06.3 Autoimmune thyroiditis; Z88.8 Allergy status to other drugs, medicaments and biological substances; W18.30XA Fall on same level, unspecified, initial encounter
CPT/HCPCS: 01830; 64417; 73100; 80307; C1713; J0690; J1100; J1885; J2001; J2250; J2405; J2704; J2795; J3010; J7121